=== PATIENT | male | born 1945 | race Caucasian/White ===

== ENCOUNTER 2019-04-09 14:08 | Emergency (ER) | payer MEDICARE, OTHER ==
[~2019-04-09 14:08] MED LIST: AMLO10TA7 PO; FINA5TAB41 PO; LOSA1TAB42 PO; PRED5TAB PO; SPIR25TA6 PO; VITAMIN B12 PO; VITAMIN B6 PO
== END 2019-04-09 17:35 | disposition left against medical advice (07) ==
LOC: EDH 14:08
DX: G89.29 Other chronic pain (principal); M54.5 Low back pain; I10 Essential (primary) hypertension; Z88.1 Allergy status to other antibiotic agents; Z88.8 Allergy status to other drugs, medicaments and biological substances; Z53.21 Procedure and treatment not carried out due to patient leaving prior to being seen by health care provider

== ENCOUNTER → 2019-05-19 | Outpatient (CLI) | payer MEDICARE, OTHER ==
[~2019-05-19] MED LIST changes: +GADODIAMIDE 10 MMOL/20 ML VIAL IV ONE
== END | disposition home or self-care (01) ==
LOC: RAH 12:30
PROVIDERS: ATTEND Family Medicine
DX: M43.17 Spondylolisthesis, lumbosacral region (principal); M48.07 Spinal stenosis, lumbosacral region; M47.817 Spondylosis without myelopathy or radiculopathy, lumbosacral region; M79.2 Neuralgia and neuritis, unspecified
CPT/HCPCS: 72158; A9579

== ENCOUNTER → 2022-01-21 | Outpatient (CLI) | payer MEDICARE, OTHER ==
[~2022-01-21] MED LIST changes: +AMLO-258 PO; -AMLO10TA7 PO; -GADODIAMIDE 10 MMOL/20 ML VIAL IV ONE
== END | disposition home or self-care (01) ==
LOC: RAH 09:10
PROVIDERS: ATTEND Family Medicine
DX: M47.26 Other spondylosis with radiculopathy, lumbar region (principal); M48.061 Spinal stenosis, lumbar region without neurogenic claudication; M79.2 Neuralgia and neuritis, unspecified; M43.5X7 Other recurrent vertebral dislocation, lumbosacral region
CPT/HCPCS: 72148